=== PATIENT | female | born 1990 | race Hispanic/Latino ===

== ENCOUNTER 2020-08-17 09:08 | Emergency (ER) | payer OTHER ==
[~2020-08-17] VITALS: Ht 157.5 cm; Wt 117.9 kg
[2020-08-17] MEDS ORDERED: CYCLOBENZAPRINE5 MG PO (10:36)
[2020-08-17] MEDS ORDERED: PREVACID30 MG PEG (10:36)
== END 2020-08-17 11:03 | disposition home or self-care (01) ==
LOC: FSED 09:31
DX: R07.89 Other chest pain (principal); K21.9 Gastro-esophageal reflux disease without esophagitis; J45.909 Unspecified asthma, uncomplicated
CPT/HCPCS: 71045; 80053; 82553; 84484; 85025; 85379; 93005; 99283